=== PATIENT | female | born 1955 | race Caucasian/White ===

== ENCOUNTER → 2017-02-18 | Outpatient (CLI) | payer BC, OTHER ==
--- NOTE | ~2017-02-18 | 2DMMODE ---
[facility] [employer] [place] [place] [address] 2 D/M-MODE ECHOCARDIOGRAM Name: CAROLINEEMELIA GIA Room #: REG [facility]#: [id number] Admission: 02/18/17 Attend Phys: Cecilio Livingston Discharge: Date of : 53 Date of Service: 02/18/17 1115 Report #: [id number] THIS REPORT FOR: //name// APPROVED REPORT Study performed: 02/18/2017 10:02:56 EXAM: Comprehensive 2D, Doppler, and color-flow Echocardiogram Patient Location: Out-Patient Blood Pressure: 124/68 mmHg HR: 59 bpm Other Information Study Quality: Good Indications Palpitations Hypertension/HDD 2D Dimensions RVDd: 35.42 mm LVEF(%): 53.33 (>50%) IVSd: 12.93 (7-11mm) LVOT Diam: 22.38 (18-24mm) LVDd: 44.23 mm PWd: 11.72 (7-11mm) Ascending Ao: 30.94 (22-36mm) LVDs: 32.15 (25-40mm) Aortic Root: 28.61 mm IVC: 16.00 mm Mena's LVEF: 53.33 % Volumes Left Atrial Volume (Systole) Single Plane 4CH: 47.29 mL Single Plane 2CH: 51.59 mL LA ESV Index: 28.00 mL/m2 Aortic Valve AoV Peak David.: 0.97 m/s AO Peak Gr.: 3.79 mmHg LVOT Max P.87 mmHg LVOT Max V: 0.68 m/s STEFANIE Vmax: 2.76 cm2 Mitral Valve E/A Ratio: 1.0 MV Decel. Time: 244.86 ms [facility] [address] [place] [address] 2 D/M-MODE ECHOCARDIOGRAM Name: KINGEMELIABHUPENDRA NIELSEN Room #: [facility]#: [id number] Admission: 02/18/17 Attend Phys: Cecilio Livingston Discharge: Date of : 53 Date of Service: 02/18/17 1115 Report #: [id number] MV E Max David.: 0.81 m/s MV A David.: 0.79 m/s MV PHT: 71.01 ms IVRT: 101.50 ms Pulmonary Valve PV Peak David.: 0.76 m/s PV Peak Gr.: 2.30 mmHg Pulmonary Vein P Vein S: 50.7 m/s P Vein A: 23.74 m/s P Vein D: 36.6 m/s P Vein A Dur.: 106.1 msec Tricuspid Valve TR Peak David.: 2.37 m/s RAP Estimate: 5.00 mmHg TR Peak Gr.: 22.53 mmHg Left Ventricle The left ventricle is normal size. There is normal LV segmental wall motion. Mild concentric left ventricular hypertrophy. The left ventricular systolic function is normal. The left ventricular ejection fraction is within the normal range. A prominent false tendon is noted (normal variant). LVEF is 55-60%. Grade II - pseudonormal filling dynamics. Right Ventricle The right ventricle is normal size. The right ventricular systolic function is normal. Atria The left atrium size is normal. The right atrium size is normal. Aortic Valve The aortic valve is normal in structure. No aortic regurgitation is present. There is no aortic valvular stenosis. Mitral Valve The mitral valve is normal in structure. Mild mitral regurgitation. No evidence of mitral valve stenosis. Tricuspid Valve The tricuspid valve is normal in structure. There is no tricuspid valve stenosis. There is trace to mild tricuspid regurgitation. The right atrial pressure is estimated at 5 mmHg. There is no pulmonary hypertension. The estimated PAP was [address] [address] 2 D/M-MODE ECHOCARDIOGRAM Name: EMELIA VELAZQUEZ Room #: REG [facility]#: [id number] Admission: 02/18/17 Attend Phys: Cecilio Livingston Discharge: Date of : 53 Date of Service: 02/18/17 1115 Report #: [id number] Pulmonic Valve The pulmonary valve is normal in structure. There is no pulmonic valvular regurgitation. Great Vessels The aortic root is normal in size. IVC is normal in size and collapses >50% with inspiration. Pericardium There is no pericardial effusion. <Conclusion> The left ventricle is normal size. LVEF is 55-60%. The aortic valve is normal in structure. The mitral valve is normal in structure. The tricuspid valve is normal in structure. There is trace to mild tricuspid regurgitation. The right atrial pressure is estimated at 5 mmHg. There is no pulmonary hypertension. The estimated PAP was 28 mmHg The pulmonary valve is normal in structure. <ELECTRONICALLY SIGNED> By: Goldy Cardoso MD 02/18/17 1115 1115 1115 Goldy Cardoso MD /INF
== END ==
LOC: CV 09:47
DX: I10 Essential (primary) hypertension (principal); R00.2 Palpitations

== ENCOUNTER → 2019-04-03 | Outpatient (CLI) | payer BC, OTHER ==
--- NOTE | 2019-04-03 15:12 | 2DMMODE ---
[facility] [email or web address] [address] 2 D/M-MODE ECHOCARDIOGRAM Name: EMELIA VELAZQUEZ Room #: REG [facility]#: [id number] ������������� Admission: 04/03/19 ������������� Attend Phys: Cecilio Livingston Discharge: ��� ������������� ��� Date of : 53 Date of Service: 04/03/19 1512 �� Report #: [id number] �������� ��������������������������������������������[id number] THIS REPORT FOR: //name// APPROVED REPORT Study performed: 04/03/2019 13:06:03 EXAM: Comprehensive 2D, Doppler, and color-flow Echocardiogram Patient Location: Out-Patient Room #: Echo lab 2 BSA: 2.00 HR: 55 bpm Rhythm: Bradycardia Other Information Study Quality: Good Indications Arrhythmia 2D Dimensions RVDd: 31.92 mm IVSd: 11.96 (7-11mm) LVOT Diam: 21.36 (18-24mm) LVDd: 45.60 mm PWd: 10.59 (7-11mm) Ascending Ao: 33.27 (22-36mm) LVDs: 30.88 (25-40mm) Aortic Root: 29.82 mm IVC: 15.00 mm Volumes Left Atrial Volume (Systole) Single Plane 4CH: 41.08 mL Single Plane 2CH: 54.04 mL LA ESV Index: 25.00 mL/m2 Aortic Valve AoV Peak David.: 1.11 m/s AO Peak Gr.: 4.95 mmHg LVOT Max P.98 mmHg LVOT Max V: 0.70 m/s STEFANIE Vmax: 2.26 cm2 Mitral Valve E/A Ratio: 85.0 MV E Max David.: 0.85 m/s MV A David.: 0.01 m/s [facility] [employer] [address] [place] [address] 2 D/M-MODE ECHOCARDIOGRAM Name: EMELIA VELAZQUEZ [facility] Room #: REG [facility]#: [id number] ������������� Admission: 04/03/19 ������������� Attend Phys: Cecilio Livingston Discharge: ��� ������������� ��� Date of : 53 Date of Service: 04/03/19 1512 �� Report #: [id number] �������� ��������������������������������������������[id number] IVRT: 78.43 ms Pulmonary Valve PV Peak David.: 0.71 m/s PV Peak Gr.: 2.02 mmHg Pulmonary Vein P Vein S: 0.72 m/s P Vein A: 0.28 m/s P Vein D: 0.32 m/s P Vein A Dur.: 106.1 msec P Vein S/D Ratio: 2.25 Tricuspid Valve TR Peak David.: 2.30 m/s TR Peak Gr.: 21.25 mmHg PA Pressure: 26.00 mmHg Left Ventricle The left ventricle is normal size. There is normal left ventricular wall thickness. The left ventricular systolic function is normal. The left ventricular ejection fraction is within the normal range. LVEF is 60-65%. Grade I - abnormal relaxation pattern. Right Ventricle The right ventricle is normal size. The right ventricular systolic function is normal. Atria The left atrium size is normal. The right atrium size is normal. Aortic Valve The aortic valve is normal in structure. No aortic regurgitation is present. There is no aortic valvular stenosis. Mitral Valve The mitral valve is normal in structure. Mild mitral regurgitation. No evidence of mitral valve stenosis. Tricuspid Valve The tricuspid valve is normal in structure. There is trace tricuspid regurgitation. Estimated PAP 26 mmHg. There is no pulmonary hypertension. Pulmonic Valve The pulmonary valve is normal in structure. There is no pulmonic valvular regurgitation. [facility] [address] [place] [address] 2 D/M-MODE ECHOCARDIOGRAM Name: EMELIA VELAZQUEZ [facility] Room #: REG [facility]#: [id number] ������������� Admission: 04/03/19 ������������� Attend Phys: Cecilio Livingston Discharge: ��� ������������� ��� Date of : 53 Date of Service: 04/03/19 1512 �� Report #: [id number] �������� ��������������������������������������������[id number] Great Vessels The aortic root is normal in size. IVC is normal in size and collapses >50% with inspiration. Pericardium There is no pericardial effusion. <Conclusion> The left ventricle is normal size. LVEF is 60-65%. The aortic valve is normal in structure. The mitral valve is normal in structure. Mild mitral regurgitation. The tricuspid valve is normal in structure. There is trace tricuspid regurgitation. Estimated PAP 26 mmHg. There is no pulmonary hypertension. The pulmonary valve is normal in structure. There is no pericardial effusion. ��������������������������������������������� <ELECTRONICALLY SIGNED> ���������������������������������������� By: Goldy Cardoso MD ��������������������������������������������� 04/03/19 151 11 11 Goldy Cardoso MD /INF
== END ==
LOC: CV 12:49
DX: I34.0 Nonrheumatic mitral (valve) insufficiency (principal); I10 Essential (primary) hypertension; E78.5 Hyperlipidemia, unspecified; I25.10 Atherosclerotic heart disease of native coronary artery without angina pectoris; Z79.899 Other long term (current) drug therapy

== ENCOUNTER → 2020-04-01 | Outpatient (CLI) | payer OTHER, BC | LOC: SJCVC 10:13 | PROVIDERS: ATTEND Internal Medicine Cardiovascular Disease | DX: I44.0 Atrioventricular block, first degree (principal); R94.31 Abnormal electrocardiogram [ECG] [EKG]; I12.9 Hypertensive chronic kidney disease with stage 1 through stage 4 chronic kidney disease, or unspecified chronic kidney disease; N18.3 Chronic kidney disease, stage 3 (moderate); K21.9 Gastro-esophageal reflux disease without esophagitis; E78.5 Hyperlipidemia, unspecified; E03.9 Hypothyroidism, unspecified; E78.00 Pure hypercholesterolemia, unspecified; Z82.49 Family history of ischemic heart disease and other diseases of the circulatory system; Z79.82 Long term (current) use of aspirin; Z79.899 Other long term (current) drug therapy ==

== ENCOUNTER → 2021-03-31 | Outpatient (CLI) | payer OTHER, BC | LOC: SJCVC 10:17 | PROVIDERS: ATTEND Internal Medicine Cardiovascular Disease | DX: I44.0 Atrioventricular block, first degree (principal); I49.3 Ventricular premature depolarization; E78.00 Pure hypercholesterolemia, unspecified; E78.5 Hyperlipidemia, unspecified; I12.9 Hypertensive chronic kidney disease with stage 1 through stage 4 chronic kidney disease, or unspecified chronic kidney disease; N18.30 Chronic kidney disease, stage 3 unspecified; K21.9 Gastro-esophageal reflux disease without esophagitis; E03.9 Hypothyroidism, unspecified; D64.9 Anemia, unspecified; E55.9 Vitamin D deficiency, unspecified; Z88.2 Allergy status to sulfonamides; Z88.8 Allergy status to other drugs, medicaments and biological substances; Z79.82 Long term (current) use of aspirin; Z79.899 Other long term (current) drug therapy; Z82.49 Family history of ischemic heart disease and other diseases of the circulatory system ==